=== PATIENT | female | born 2000 | race Caucasian/White ===

== ENCOUNTER 2018-08-23 01:26 | Emergency (ER) | payer MEDICAID, SELFPAY ==
--- NOTE | 2018-08-23 12:54 | ULT ---
PRELIMINARY REPORT/[facility]/EMERGENTY AFTER-HOURS PROCEDURE US , Transvaginal and US Duplex Artery and Vein, Ovaries, Complete EXAM DATE/TIME: 08/23/2018 2:49 AM CLINICAL HISTORY: 18 years old, female; complicated by abdominal or pelvic pain; Lower; First trimester; Gest ational age or lmp: 6wks; TECHNIQUE: Imaging protocol: Real-time transvaginal obstetrical ultrasound of the maternal pelvis and a first tr ester with image documentation. Transvaginal imaging was used for better evaluation of th e fetus and adnexa. Real-time duplex ultrasound scan of the arterial and venous flow of the ovaries with B-mode, color Doppler flow and spectral waveform analysis, Complete Duplex. COMPARISON: No relevant prior studies available. FINDINGS: Transvaginal obstetrical ultrasound was performed. Duplex ultrasound scan with color Doppler flow and spectral waveform analysis was also performed for evaluation of pelvic and ovarian blood flow and to rsion. Gestation: Single, living intrauterine gestation. heart rate 117 beats per minute. CRL 0.82 cm, 6w5d. Yolk sac visualized. Placenta/amniotic fluid: Small subchorionic hemorrhage measuring up to 1.3cm. Uterus/cervix: Retroverted. No acute findings. No myometrial mass. Right adnexa: Right ovarian probable corpus luteum. Otherwise unremarkable. Normal duplex of the ovar y. No evidence of torsion. Left adnexa: No acute findings. No mass. Normal duplex of the ovary. No evidence of torsion. Free fluid: No free fluid. IMPRESSION: Single viable intrauterine . Small subchorionic hemorrhage. Thank you for allowing us to participate in the care of your patient. Dictated and Authenticated by: Hans Alvarado MD 08/23/2018 4:20 AM Central Time ([place] & [place]) FINAL REPORT PELVIC ULTRASOUND: HISTORY: patient with abdominal pain. COMPARISON: None. TECHNIQUE: Endovaginal imaging of the pelvis is performed. Ovaries are interrogated with campbell scale, color flow , Doppler imaging, and spectral waveform analysis. FINDINGS: Retroverted uterus is identified. There is a gestational sac, yolk sac, and pole. Anna Maria-rump length is 0.82 cm corresponding to a gestational age of 6 weeks 5 days. There are heart tones with a rate of 117 b.p.m. Small subchorionic hemorrhage is identified. Right ovarian corpus luteal cyst is noted. There is vascular flow to both ovaries. IMPRESSION: 1. Single intrauterine gestation with heart tones. Small subchorionic hemorrhage is noted. 2. Gestational age by crown-rump length is 6 weeks 5 days. This report is in agreement with the pre liminary report by [facility]. POS: OFF
== END 2018-08-23 03:34 | disposition home or self-care (01) ==
LOC: ERS 01:26
DX: O34.81 Maternal care for other abnormalities of pelvic organs, first trimester (principal); N83.11 Corpus luteum cyst of right ovary; O99.511 Diseases of the respiratory system complicating pregnancy, first trimester; J45.909 Unspecified asthma, uncomplicated; Z3A.01 Less than 8 weeks gestation of pregnancy
CPT/HCPCS: 76856

== ENCOUNTER 2018-10-11 13:55 | Emergency (ER) | payer MEDICAID ==
[2018-10-11 15:20] LABS: #Eosinphils 0.1 thou/uL (0.0-0.7); #Lymphocytes 1.6 thou/uL (1.20-3.40); #Monocytes 0.3 thou/uL (0.11-0.59); #Neutrophils 3.5 thou/uL (1.40-6.50); %Basophils 0.8 % (0.0-1.0); %Eosinophils 2.3 % (0.0-10.0); %Lymphocytes 28.6 % (28.0-48.0); %Monocytes 5.2 % (0.0-4.0); Hemoglobin 12.3 g/dL (12.0-16.0); Mean Corpuscular HGB CONC 32.2 g/dL (32.0-36.0); Mean Corpuscular Hemoglobin 27.6 pg (25.0-35.0); Mean Corpuscular Volume 85.6 fL (78.0-98.0); Mean Platelet Volume 7.9 fL (7.4-10.4); Platelet Count 205 thou/uL (130-400); RBC Distribution Width 12.3 % (11.5-14.5); Red Blood Cell (RBC) Count 4.47 mill/uL (4.00-5.20); White Blood Cell (WBC) Count 5.5 thou/uL (4.8-10.8)
[2018-10-11 15:36] LABS: BHCG - Serum POSITIVE (NEGATIVE); Pregs Control Background? CLEAR/WHITE (CLR/WHITE); Pregs Control Bar Appear? YES (CONTROL BAR)
--- NOTE | 2018-10-11 15:49 | ULT ---
US Pelvic W Doppler HISTORY: Pelvic pain and bleeding. COMPARISON: 08/23/2018 study. FINDINGS: Real-time imaging of the pelvis was obtained both transabdominally as well as within the en dovaginal probe. This shows an intrauterine gestational sac and pole. The sac is irregular in shape the crown-rump length measurements are 2.1 cm corresponding to 8 weeks 5 days. There is no f etal motion or heart activity seen. There is a 1.7 cm right ovarian cyst. Left ovary is normal in appearance. Doppler evaluation with spectral analysis: normal flow shown to both adnexa. IMPRESSION: Findings compatible with demise.
[2018-10-11 16:00] LABS: Bilirubin Negative (Negative); Blood, Urine 3+ (Negative); Clarity Turbid (Clear); Glucose, Urine (Dipstick) Normal (Negative); Leukocyte 500 Leu/uL (Negative); Nitrite Negative (Negative); Protein, Urine (Dipstick) 30 mg/dL (Neg-Trace); RBC/HPF Greater than 50 HPF (0-3); Urobilinogen 3 mg/dL (Less than 2)
[2018-10-11 16:07] LABS: Bacteria/HPF 2+ HPF (None Seen)
[2018-10-11 16:08] LABS: Squamous Epithelial 21-50 HPF (0-3)
== END 2018-10-11 15:57 | disposition home or self-care (01) ==
LOC: ERS 13:55
DX: O03.9 Complete or unspecified spontaneous abortion without complication (principal)
CPT/HCPCS: 36415; 76856; 81003; 81015; 84702; 84703; 85025; 86900; 86901; 93976

== ENCOUNTER 2018-12-21 20:51 | Emergency (ER) | payer MEDICAID ==
[2018-12-21] MEDS ORDERED: Ketorolac Tromethamine 30 MG/ML VIAL ONE (22:27)
[2018-12-21] MEDS ORDERED: Morphine 4 MG/ML VIAL ONE (22:35)
[2018-12-21] MEDS ORDERED: Ondansetron PF 4 MG/2 ML Vial ONE (22:36)
[2018-12-21 23:04] LABS: #Eosinphils 0.2 thou/uL (0.0-0.7); #Lymphocytes 2.6 thou/uL (1.20-3.40); #Monocytes 0.4 thou/uL (0.11-0.59); #Neutrophils 4.4 thou/uL (1.40-6.50); %Basophils 0.4 % (0.0-1.0); %Eosinophils 2.2 % (0.0-10.0); %Lymphocytes 34.8 % (28.0-48.0); %Monocytes 5.2 % (0.0-4.0); %Neutrophils 57.5 % (31.0-61.0); Hemoglobin 11.3 g/dL (12.0-16.0); Mean Corpuscular HGB CONC 32.6 g/dL (32.0-36.0); Mean Corpuscular Hemoglobin 26.3 pg (25.0-35.0); Mean Corpuscular Volume 80.6 fL (78.0-98.0); Mean Platelet Volume 8.1 fL (7.4-10.4); Platelet Count 263 thou/uL (130-400); RBC Distribution Width 13.1 % (11.5-14.5); Red Blood Cell (RBC) Count 4.32 mill/uL (4.00-5.20); White Blood Cell (WBC) Count 7.6 thou/uL (4.8-10.8)
[2018-12-21 23:10] LABS: BHCG - Serum Negative (NEGATIVE); Pregs Control Background? CLEAR/WHITE (CLR/WHITE); Pregs Control Bar Appear? YES (CONTROL BAR)
[2018-12-21 23:28] LABS: ALT (SGPT) 10 U/L (8-55); AST (SGOT) 14 U/L (5-34); Albumin 4.6 g/dL (3.5-5.0); Alkaline Phosphatase 80 U/L (40-100); Anion Gap 14 mmol/L (10-20); BUN (Urea Nitrogen) 9 mg/dL (7.0-18.7); Bilirubin, Total 0.2 mg/dL (0.2-1.2); CK (CPK) 71 U/L (29-168); Calc. Creatinine Clearance 0 mL/min (70-130); Calcium 9.7 mg/dL (7.8-10.44); Carbon Dioxide 25 mmol/L (22-29); Chloride 104 mmol/L (98-107); Estimated GFR-MDRD 90; Globulin 3.5 g/dL (2.4-3.5); Glucose 89 mg/dL (70-105); Lipase 45 U/L (8-78); Potassium 3.9 mmol/L (3.5-5.1); Protein, Total 8.1 g/dL (6.0-8.3); Sodium 139 mmol/L (136-145)
--- NOTE | 2018-12-21 23:33 | ULT ---
ULTRASOUND ABDOMEN LIMITED: (RIGHT UPPER QUADRANT) DATE: 12/21/2018 HISTORY: 18-year-old female with right upper quadrant abdominal pain FINDINGS: Gallbladder:Several small mobile gallstones at fundus, on the order of 7 mm in size each. Small amoun t of sludge. No mural thickening or pericholecystic fluid. Common duct: 6 mm. Liver:Echogenicity within normal limits. Pancreas:Partially obscured by shadowing from overlying bowel gas. Right kidney:No hydronephrosis. IMPRESSION: 1) positive for cholelithiasis. 2) common duct caliber 6 mm, which is minimally dilated for patient's age. This raises the possibilit y of occult choledocholithiasis.
--- NOTE | 2018-12-25 15:22 | EKG ---
Test Reason : Blood Pressure : / mmHG Vent. Rate : 087 BPM Atrial Rate : 087 BPM P-R Int : 132 ms QRS Dur : 090 ms QT Int : 378 ms P-R-T Axes : 030 000 018 degrees QTc Int : 454 ms Normal sinus rhythm with sinus arrhythmia Normal ECG Confirmed by EDER NAGY, NACHO ([id number]), telegraph editor TI BAIN ([id number]) on 12/25/2018 3:22:08 PM Referred By: Confirmed By:NACHO GAINES MD
== END 2018-12-22 | disposition home or self-care (01) ==
LOC: ERS 20:51
DX: K80.20 Calculus of gallbladder without cholecystitis without obstruction (principal); Z79.899 Other long term (current) drug therapy
CPT/HCPCS: 76705; 80053; 82550; 83690; 84703; 85025; 93005; 96361; 96372; 96374; 96375; J1885; J2270; J2405

== ENCOUNTER 2020-09-15 09:28 | Outpatient (CLI) | payer OTHER | END 2020-09-15 09:29 | disposition home or self-care (01) | LOC: BICULT 09:28 | PROVIDERS: ATTEND Family Medicine | DX: Z34.82 Encounter for supervision of other normal pregnancy, second trimester (principal); Z3A.20 20 weeks gestation of pregnancy | CPT/HCPCS: 76805 ==

== ENCOUNTER 2020-12-08 14:05 | Emergency (ER) | payer MEDICAID ==
[2020-12-08] MEDS ORDERED: Benzocaine 20% Spray 60 ML CAN ONE (14:41)
[2020-12-08] MEDS ORDERED: Acetaminophen 500 MG TAB ONE (14:41)
[2020-12-08 21:34] LABS: Hemoglobin 12.3 g/dL (12.0-16.0); MDiff Complete? YES; Manual Diff?? YES; Mean Corpuscular Hemoglobin 27.3 pg (27.0-31.0); Mean Platelet Volume 9.1 fL (7.4-10.4); Platelet Count 142 thou/uL (130-400); RBC Distribution Width 13.2 % (11.5-14.5); Red Blood Cell (RBC) Count 4.51 mill/uL (4.20-5.40); White Blood Cell (WBC) Count 5.7 thou/uL (4.8-10.8)
[2020-12-08 21:35] LABS: ALT (SGPT) 206 U/L (8-55); AST (SGOT) 153 U/L (5-34); Albumin 3.5 g/dL (3.5-5.0); Alkaline Phosphatase 216 U/L (40-110); Anion Gap 19 mmol/L (10-20); BUN (Urea Nitrogen) 12 mg/dL (7.0-18.7); Band 13 % (5-11); Bilirubin, Total 0.7 mg/dL (0.2-1.2); Calc. Creatinine Clearance 0 mL/min (70-130); Calcium 8.9 mg/dL (7.8-10.44); Carbon Dioxide 19 mmol/L (22-29); Chloride 104 mmol/L (98-107); Globulin 3.6 g/dL (2.4-3.5); Glucose 72 mg/dL (70-105); Lymphocytes 9 % (21-51); Monocytes 2 % (0-10); Neutrophil 76 % (42-75); Platelet Morphology Comment Appears Adequate; Potassium 3.5 mmol/L (3.5-5.1); Protein, Total 7.1 g/dL (6.0-8.3); RBC Morphology Normal; Sodium 138 mmol/L (136-145)
[2020-12-08 22:13] LABS: Clarity Clear (Clear)
[2020-12-08 22:14] LABS: Bilirubin Moderate (Negative); Blood, Urine Negative (Negative); Glucose, Urine (Dipstick) Negative (Negative); Ketone, Urine Trace mg/dL (Negative); Leukocyte Small Leu/uL (Negative); Nitrite Negative (Negative); Protein, Urine (Dipstick) 30 mg/dL (Neg-Trace); Specific Gravity, Urine 1.025 (1.002-1.036); pH, Urine 5.5 (5.0-9.0)
[2020-12-08 22:15] LABS: Bacteria/HPF 2+ HPF (None Seen)
== END 2020-12-09 02:43 | disposition short-term general hospital (02) ==
LOC: ERS 14:05
DX: O98.513 Other viral diseases complicating pregnancy, third trimester (principal); U07.1 COVID-19; O99.891 Other specified diseases and conditions complicating pregnancy; R09.02 Hypoxemia; Z3A.32 32 weeks gestation of pregnancy
CPT/HCPCS: 71045; 80053; 81001; 83605; 85025; 87040; 93005

== ENCOUNTER 2022-10-28 09:29 | Outpatient (CLI) | payer OTHER ==
[~2022-10-28 09:29] MED LIST: Magnevist 469MG/ML 20 ML VIAL ONE
== END 2022-10-28 09:30 | disposition home or self-care (01) ==
LOC: BICMRI 09:29
PROVIDERS: ATTEND Psychiatry & Neurology Neurology
DX: R51.9 Headache, unspecified (principal); G93.9 Disorder of brain, unspecified
CPT/HCPCS: 70553; A9579